=== PATIENT | female | born 1955 | race Caucasian/White ===

== ENCOUNTER 2016-08-09 17:14 | Emergency (ER) | payer OTHER ==
[2016-08-09] MEDS ORDERED: cefTRIAXone 1 GM VIAL IM STA (17:41)
[2016-08-09] MEDS ORDERED: LIDOCAINE 1% 2 ML VIAL ONE (17:44)
[2016-08-09] MEDS ORDERED: cefTRIAXone 1 GM VIAL ONE (17:44)
--- NOTE | 2016-08-09 17:46 | ED Physician Documentation ---
PD HPI ANIMAL BITE - Stated complaint Stated Complaint: CAT BITE - Chief complaint Chief Complaint: Ext Problem - History obtained from History obtained from: Patient - History of Present Illness Location of injury(ies): LUE Details of the event: Cat, Pet animal, Immunized, Animal can be observed Timing - onset: Enter time (0800), Today Timing - duration: Hours Timing - details: Abrupt onset, Still present Improved by: Nothing Associated symptoms: Swelling, Discolored Similar symptoms before: Has not had sx before Recently seen: Not recently seen - Additional information Additional information: 61 y/o female was bit by a cat this morning at her sons house in [place]. . As she drove back here she began to have pain in her wrist that she thought was from driving and when she arrived her she noted there was redness and swelling and a lymphangitic streak from the bite. She has not had fever or faintness. Review of Systems Constitutional: denies: Fever Ears: denies: Ear pain Nose: denies: Congestion Throat: denies: Sore throat Respiratory: denies: Cough GI: denies: Vomiting : denies: Dysuria, Frequency Skin: denies: Rash Musculoskeletal: reports: Extremity pain. denies: Neck pain, Back pain PD PAST MEDICAL HISTORY - Past Medical History Past Medical History: Yes Cardiovascular: Hypertension, High cholesterol - Past Surgical History Past Surgical History: No - Present Medications Home Medications: Ambulatory Orders Medication Instructions Recorded Confirmed Amox/Clav 875/125 [Augmentin] 1 each PO Q12H #20 tablet 08/09/16 Metoprolol Succinate [Toprol Xl] 25 mg PO BID 08/09/16 08/09/16 Simvastatin 10 mg PO DAILY 08/09/16 08/09/16 - Allergies Allergies/Adverse Reactions: Allergies Allergy/AdvReac Type Severity Reaction Status Date / Time Sulfa (Sulfonamide Allergy Unknown Verified 08/09/16 17:24 Antibiotics) varenicline tartrate * Allergy Hallucinati Verified 08/09/16 17:24 [From Chantix] ons - Social History Does the pt smoke?: Yes Smoking Status: Current every day smoker PD ED PE NORMAL - Vitals Vital signs reviewed: Yes (hypertensive and tachy ) - General General: Alert and oriented X 3, No acute distress, Well developed/nourished - HEENT HEENT: Atraumatic, PERRL - Respiratory Respiratory: No respiratory distress - Derm Derm: Normal color, Warm and dry, No rash - Extremities Extremities: No deformity, Other (There are 2 small puncture wounds over the dorsum of the left wrist and these areas are erythematous, swollen and there is the beginning of a lymphangitic streak that runs to about the mid forearm. ) - Neuro Neuro: No motor deficit, No sensory deficit - Psych Psych: Normal mood, Normal affect Results - Vitals Vitals: Vital Signs - 24 hr 08/09/16 17:21 Temperature 36.6 C Heart Rate 103 H Respiratory 18 Rate Blood Pressure 192/95 H O2 Saturation 97 Oxygen O2 Source Room air PD MEDICAL DECISION MAKING - ED course Complexity details: considered differential, d/w patient ED course: 61 y/o female with an infected cat bite to the left wrist. She is given rocephin IM and we will put her on some augmentin. We have given her instructions to return to the ED if she fails this treatment. Departure - Departure Disposition: 01 Home, Self Care Clinical Impression: Pasteurella cellulitis due to cat bite Condition: Stable Instructions: ED Bite Cat, ED Infec Skin Cellulitis Follow-Up: Danii Lyon PA-C [Primary Care Provider] - Prescriptions: Amox/Clav 875/125 [Augmentin] 1 each PO Q12H #20 tablet Forms: Activity restrictions
[2016-08-09 18:07] VITALS: BP 134/76
== END 2016-08-09 18:06 | disposition home or self-care (01) ==
LOC: ED 17:14
DX: L03.114 Cellulitis of left upper limb (principal); B96.89 Other specified bacterial agents as the cause of diseases classified elsewhere; S61.552A Open bite of left wrist, initial encounter; I10 Essential (primary) hypertension; F17.200 Nicotine dependence, unspecified, uncomplicated; W55.01XA Bitten by cat, initial encounter; Y92.009 Unspecified place in unspecified non-institutional (private) residence as the place of occurrence of the external cause
CPT/HCPCS: 96372; 99283

== ENCOUNTER 2017-05-26 09:04 | Emergency (ER) | payer OTHER ==
[2017-05-26 09:13] VITALS: BP 197/99
[2017-05-26] MEDS ORDERED: TETANUS/DIPHTHERIA/PERTUSSIS 0.5 ML SYRINGE IM ONE (10:05)
--- NOTE | 2017-05-26 10:09 | ED Physician Documentation ---
PD HPI ANIMAL BITE - Stated complaint Stated Complaint: DOG BITE - Chief complaint Chief Complaint: Wound - History obtained from History obtained from: Patient - History of Present Illness Location of injury(ies): Right hand Details of the event: Dog, Bite, Pet animal, Well appearing, Immunized, Animal can be observed, Animal control notified Timing - onset: Today Timing - duration: Minutes Improved by: Rest, Immobilization Worsened by: Moving, Palpating Associated symptoms: No: Weakness, Numbness, Tingling Contributing factors: No: Immunocompromised Similar symptoms before: Diagnosis (cat bite) Recently seen: Not recently seen - Additional information Additional information: 61-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 The patient states that she has seen this same dog weekly, frequently, and has had a good report with this dog previously. Today she went to pet the dog on the way onto the boat and the dog bit her hand. The dog would not let go over hand and she eventually was able to get the dog off of her and has puncture wounds to the dorsum and palmar surface of the hand. She does not have numbness or tingling she does have a fair amount of pain associated with this. The dog is up-to-date on his immunizations and animal control has been notified. Review of Systems Constitutional: denies: Fever Eyes: denies: Decreased vision Ears: denies: Ear pain Nose: denies: Congestion Throat: denies: Sore throat Cardiac: denies: Chest pain / pressure Respiratory: denies: Cough GI: denies: Nausea, Vomiting Skin: reports: Bite / sting. denies: Rash Musculoskeletal: reports: Extremity pain. denies: Neck pain, Back pain PD PAST MEDICAL HISTORY - Past Medical History Past Medical History: Yes Cardiovascular: Hypertension, High cholesterol - Past Surgical History Past Surgical History: No - Present Medications Home Medications: Ambulatory Orders Medication Instructions Recorded Confirmed Metoprolol Succinate [Toprol Xl] 25 mg PO BID 08/09/16 05/26/17 Simvastatin 10 mg PO DAILY 08/09/16 05/26/17 Amox/Clav 875/125 [Augmentin] 1 each PO Q12H #10 tablet 05/26/17 - Allergies Allergies/Adverse Reactions: Allergies Allergy/AdvReac Type Severity Reaction Status Date / Time Sulfa (Sulfonamide Allergy Unknown Verified 08/09/16 17:24 Antibiotics) varenicline tartrate * Allergy Hallucinati Verified 08/09/16 17:24 [From Chantix] ons - Social History Does the pt smoke?: Yes Smoking Status: Current every day smoker PD ED PE NORMAL - Vitals Vital signs reviewed: Yes (tachy and hypertensive) - General General: Alert and oriented X 3, No acute distress, Well developed/nourished - HEENT HEENT: Atraumatic, PERRL - Neck Neck: Supple, no meningeal sign - Respiratory Respiratory: No respiratory distress - Derm Derm: Normal color, Warm and dry, No rash - Extremities Extremities: No deformity, No edema, Other (There are puncture wounds over the dorsum of the right hand over the web space of the 1st-2nd and over the bearden surface of the space between #2 AND #3. Distal n/v is intact. ) - Neuro Neuro: No motor deficit, No sensory deficit Eye Opening: Spontaneous Motor: Obeys Commands Verbal: Oriented GCS Score: 15 - Psych Psych: Normal mood, Normal affect Results - Vitals Vitals: Vital Signs - 24 hr 05/26/17 09:09 Temperature 36.7 C Heart Rate 116 H Respiratory 20 Rate Blood Pressure 197/99 H O2 Saturation 96 Oxygen O2 Source Room air PD MEDICAL DECISION MAKING - ED course Complexity details: reviewed old records, considered differential, d/w patient ED course: 61-year-old female with a dog bite to the right hand in a non-provoked attack is treated conservatively with cleansing of the wounds and she is administered a tetanus booster. We will place her on antibiotic prophylaxis. Departure - Departure Disposition: 01 Home, Self Care Clinical Impression: Animal bite with open wound Condition: Stable Instructions: ED Bite Animal General Follow-Up: Danii Lyon PA-C [Primary Care Provider] - Prescriptions: Amox/Clav 875/125 [Augmentin] 1 each PO Q12H #10 tablet Forms: Activity restrictions Discharge Date/Time: 05/26/17 10:36
== END 2017-05-26 10:36 | disposition home or self-care (01) ==
LOC: ED 09:04
DX: S61.451A Open bite of right hand, initial encounter (principal); W54.0XXA Bitten by dog, initial encounter; Y93.89 Activity, other specified; Y92.29 Other specified public building as the place of occurrence of the external cause; Y99.0 Civilian activity done for income or pay; Z23 Encounter for immunization; I10 Essential (primary) hypertension; F17.200 Nicotine dependence, unspecified, uncomplicated
CPT/HCPCS: 1040M; 90471; 99283

== ENCOUNTER 2018-03-10 10:53 | Outpatient (CLI) | payer OTHER ==
[2018-03-10 11:13] LABS: BASOPHILS # (AUTO) 0.1 10^3/uL (0.0-0.1); BASOPHILS % (AUTO) 0.9 %; EOSINOPHILS # (AUTO) 0.2 10^3/uL (0.0-0.7); EOSINOPHILS % (AUTO) 2.4 %; LYMPHOCYTES # (AUTO) 2.2 10^3/uL (1.5-3.5); LYMPHOCYTES % (AUTO) 24.6 %; MEAN CORPUSCULAR HEMOGLOBIN 30.8 pg (27.0-31.0); MEAN CORPUSCULAR HGB CONC 33.6 g/dL (32.0-36.0); MEAN CORPUSCULAR VOLUME 91.5 fL (81.0-99.0); MEAN PLATELET VOLUME 8.2 fL (7.9-10.8); MONOCYTES # (AUTO) 0.6 10^3/uL (0.0-1.0); MONOCYTES % (AUTO) 6.3 %; NEUTROPHILS # (AUTO) 5.9 10^3/uL (1.5-6.6); NEUTROPHILS % (AUTO) 65.8 %; PLT - PLATELET COUNT 352 10^3/uL (130-450); RED BLOOD COUNT 4.54 10^6/uL (4.20-5.40); RED CELL DISTRIBUTION WIDTH 14.6 % (12.0-15.0); WHITE BLOOD COUNT 8.9 x10^3/uL (4.8-10.8)
[2018-03-10 16:11] LABS: ALBUMIN/GLOBULIN RATIO 1.1 (1.0-2.2); ALKALINE PHOSPHATASE 89 IU/L (42-121); ALT ALANINE AMINOTRANSFERASE 19 IU/L (10-60); AST ASPARTATE AMINOTRANSFERASE 21 IU/L (10-42); BILIRUBIN,TOTAL 0.5 mg/dL (0.2-1.0); BUN - BLOOD UREA NITROGEN 15 mg/dL (6-20); CREATININE 0.8 mg/dL (0.4-1.0); GFR - MDRD 73 (>89); TOTAL PROTEIN 7.5 g/dL (6.7-8.2); URIC ACID 7.8 mg/dL (2.6-7.2)
[2018-03-10 16:12] LABS: CHOLESTEROL 238 mg/dL; HDL CHOLESTEROL 40 mg/dL; LDL CHOLESTEROL,CALCULATED 154 mg/dL; LDL/HDL RATIO 3.9 (<4.4); VLDL CHOLESTEROL 44 mg/dL
[2018-03-10 16:14] LABS: CALCIUM 9.2 mg/dL (8.5-10.3); CARBON DIOXIDE - CO2 25 mmol/L (21-32); CHLORIDE 102 mmol/L (101-111); GLUCOSE 106 mg/dL (70-100); SODIUM 135 mmol/L (135-145)
--- NOTE | 2018-03-11 09:22 | XRAY Report ---
Reason: E785 Z0000 M1000, COPD Procedure Date: 03/10/2018 Accession Number: [id number] / [id number] Procedure: XR - Chest 2 View X-Ray CPT Code: 84815 FULL RESULT: EXAM: CHEST RADIOGRAPHY EXAM DATE: 03/10/2018 11:56 AM. CLINICAL HISTORY: E785 Z0000 M1000, COPD. COMPARISON: None. TECHNIQUE: 2 views. FINDINGS: Lungs/Pleura: No focal opacities evident. No pleural effusion. No pneumothorax. There is mild flattening of the diaphragms. Mediastinum: Heart and mediastinal contours are unremarkable. IMPRESSION: COPD. No acute thoracic findings. RADIA
== END 2018-03-10 10:54 | disposition home or self-care (01) ==
LOC: LAB 10:53 → DI 10:54
PROVIDERS: ATTEND Physician Assistant Medical
DX: J44.9 Chronic obstructive pulmonary disease, unspecified (principal); E78.5 Hyperlipidemia, unspecified; Z00.00 Encounter for general adult medical examination without abnormal findings; M10.00 Idiopathic gout, unspecified site
CPT/HCPCS: 36415; 71046; 80053; 80061; 83721; 84443; 84550; 85025

== ENCOUNTER 2018-08-15 08:00 | Outpatient (CLI) | payer OTHER ==
[2018-08-15 18:48] LABS: BASOPHILS # (AUTO) 0.1 10^3/uL (0.0-0.1); BASOPHILS % (AUTO) 0.7 %; EOSINOPHILS # (AUTO) 0.2 10^3/uL (0.0-0.7); EOSINOPHILS % (AUTO) 1.4 %; HGB - HEMOGLOBIN 14.1 g/dL (12.0-16.0); LYMPHOCYTES # (AUTO) 3.2 10^3/uL (1.5-3.5); LYMPHOCYTES % (AUTO) 28.1 %; MEAN CORPUSCULAR HEMOGLOBIN 30.9 pg (27.0-31.0); MEAN CORPUSCULAR HGB CONC 32.1 g/dL (32.0-36.0); MEAN CORPUSCULAR VOLUME 96.1 fL (81.0-99.0); MEAN PLATELET VOLUME 11.2 fL (7.9-10.8); MONOCYTES # (AUTO) 0.9 10^3/uL (0.0-1.0); MONOCYTES % (AUTO) 7.4 %; NEUTROPHILS % (AUTO) 60.8 %; PLT - PLATELET COUNT 354 10^3/uL (130-450); RED BLOOD COUNT 4.57 10^6/uL (4.20-5.40); WHITE BLOOD COUNT 11.4 x10^3/uL (4.8-10.8)
[2018-08-15 19:01] LABS: ALBUMIN 4.2 g/dL (3.2-5.5); ALBUMIN/GLOBULIN RATIO 1.2 (1.0-2.2); BILIRUBIN,TOTAL 0.5 mg/dL (0.2-1.0); CALCIUM 9.9 mg/dL (8.5-10.3); CREATININE 1.1 mg/dL (0.4-1.0); TOTAL PROTEIN 7.7 g/dL (6.7-8.2)
== END 2018-08-15 23:59 | disposition home or self-care (01) ==
LOC: LAB.WCP 08:00
PROVIDERS: ATTEND Physician Assistant Medical
DX: R55 Syncope and collapse (principal); R06.09 Other forms of dyspnea
CPT/HCPCS: 36415; 80053; 83880; 84443; 85025

== ENCOUNTER 2018-08-26 11:36 | Outpatient (CLI) | payer OTHER | END 2018-08-26 11:37 | disposition home or self-care (01) | LOC: DI 11:36 | PROVIDERS: ATTEND Physician Assistant Medical | DX: R55 Syncope and collapse (principal); R60.9 Edema, unspecified | CPT/HCPCS: 93306 ==

== ENCOUNTER 2018-09-19 | Outpatient (CLI) | payer OTHER | END 2018-09-19 23:59 | disposition home or self-care (01) | DX: R60.9 Edema, unspecified (principal) ==

== ENCOUNTER 2018-11-04 13:57 | Outpatient (CLI) | payer OTHER ==
[2018-11-04 19:48] LABS: ALBUMIN 3.8 g/dL (3.2-5.5); ALBUMIN/GLOBULIN RATIO 1.1 (1.0-2.2); ALKALINE PHOSPHATASE 74 IU/L (42-121); ALT ALANINE AMINOTRANSFERASE 44 IU/L (10-60); AST ASPARTATE AMINOTRANSFERASE 34 IU/L (10-42); BILIRUBIN,TOTAL 0.5 mg/dL (0.2-1.0); BUN - BLOOD UREA NITROGEN 15 mg/dL (6-20); CALCIUM 9.7 mg/dL (8.5-10.3); CARBON DIOXIDE - CO2 27 mmol/L (21-32); CHLORIDE 103 mmol/L (101-111); CHOL/HDL RATIO 6.3 (<4.4); CHOLESTEROL 222 mg/dL; CREATININE 0.8 mg/dL (0.4-1.0); GFR - MDRD 72 (>89); GLUCOSE 103 mg/dL (70-100); HDL CHOLESTEROL 35 mg/dL; MAGNESIUM 1.7 mg/dL (1.7-2.8); SODIUM 140 mmol/L (135-145); TOTAL PROTEIN 7.2 g/dL (6.7-8.2)
[2018-11-04 20:11] LABS: LDL CHOLESTEROL,DIRECT 124 mg/dL; LDLD/HDL RATIO 3.5 (<4.4)
== END 2018-11-04 23:59 | disposition home or self-care (01) ==
LOC: LAB.WCP 13:57
PROVIDERS: ATTEND Internal Medicine Cardiovascular Disease
DX: I10 Essential (primary) hypertension (principal)
CPT/HCPCS: 36415; 80053; 80061; 82088; 83721; 83735; 83835; 84443

== ENCOUNTER 2018-11-17 07:00 | Outpatient (CLI) | payer OTHER | END 2018-11-17 23:59 | disposition home or self-care (01) | LOC: LAB.R 07:00 | PROVIDERS: ATTEND Internal Medicine Cardiovascular Disease | DX: I10 Essential (primary) hypertension (principal) | CPT/HCPCS: 81599; 82384; 83835 ==

== ENCOUNTER 2019-02-23 16:30 | Outpatient (CLI) | payer OTHER | END 2019-02-23 23:59 | disposition home or self-care (01) | LOC: LAB.R 16:30 | PROVIDERS: ATTEND Physician Assistant Medical | DX: J06.9 Acute upper respiratory infection, unspecified (principal) | CPT/HCPCS: 87275; 87276 ==

== ENCOUNTER 2019-02-26 08:26 | Emergency (ER) | payer OTHER ==
[2019-02-26 08:37] VITALS: BP 149/86
[2019-02-26] MEDS ORDERED: DEXAMETHASONE 10 MG/ML VIAL PO STA (08:56)
[2019-02-26] MEDS ORDERED: CHERRY SYRUP 10 ML UDC PO ONE (08:56)
--- NOTE | 2019-02-26 08:58 | ED Physician Documentation ---
PD HPI SKIN - Stated complaint Stated Complaint: RASH - Chief complaint Chief Complaint: Wound - History obtained from History obtained from: Patient - History of Present Illness Timing - onset: Last night Timing - duration: Hours Timing - details: Gradual onset, Still present Location: [place] Quality / character: Itchy, Burning, Discolored Contributing factors: Exposed to medication Similar symptoms before: Diagnosis (allergic reaction) Recently seen: Clinic - Additional information Additional information: 63-year-old female is recently been diagnosed with strep and placed on az ithromycin. She has taken the initial dose and a second dose yesterday and yesterday evening she has broken out into a rash that is itchy and erythematous. She has been on azithromycin previously a number of times without problem. She indicates that previously she has been placed on a course of steroid for muscle pain and developed thrush. She states the thrush was a bad experience. She has also recently started metformin for diabetes. She started this on 02/21/2019. This is a new medication. Her symptoms of strep are persistent she does have sore throat. Review of Systems Constitutional: denies: Fever Eyes: denies: Decreased vision Ears: denies: Ear pain Nose: reports: Congestion Throat: reports: Sore throat Cardiac: denies: Chest pain / pressure, Palpitations Respiratory: reports: Cough. denies: Dyspnea GI: denies: Abdominal Pain, Nausea, Vomiting : denies: Dysuria, Frequency Skin: reports: Rash Musculoskeletal: denies: Neck pain, Back pain, Extremity pain PD PAST MEDICAL HISTORY - Past Medical History Cardiovascular: Hypertension, High cholesterol - Past Surgical History Past Surgical History: No - Present Medications Home Medications: Ambulatory Orders Medication Instructions Recorded Confirmed Metoprolol Succinate [Toprol Xl] 100 mg PO BID 08/09/16 05/26/17 Allopurinol [Zyloprim] 300 mg PO 02/26/19 Amoxicillin 875 mg PO BID #20 tablet 02/26/19 Aspirin 81 mg PO 02/26/19 Atorvastatin [Lipitor] 0 mg 02/26/19 Codeine Phosphate/Guaifenesin 473 ml PO 02/26/19 [Virtussin AC W-Alc 10-100 mg/5] Colchicine 0.6 mg PO 02/26/19 Flaxseed Oil 1,000 mg PO 02/26/19 Losartan/Hydrochlorothiazide 1 each PO 01/12/20 [Losartan-Hctz 50-12.5 mg Tab] amLODIPine [Norvasc] 2.5 mg ORAL DAILY 02/26/19 02/26/19 dexAMETHasone [Decadron] 4 mg PO DAILY #5 tablet 02/26/19 - Allergies Allergies/Adverse Reactions: Allergies Allergy/AdvReac Type Severity Reaction Status Date / Time prednisone Allergy Unknown Verified 02/26/19 08:38 Sulfa (Sulfonamide Allergy Unknown Verified 08/09/16 17:24 Antibiotics) varenicline tartrate * Allergy Hallucinati Verified 08/09/16 17:24 [From Chantix] ons - Social History Does the pt smoke?: Yes Smoking Status: Current every day smoker PD ED PE NORMAL - Vitals Vital signs reviewed: Yes (Hypertensive) - General General: Alert and oriented X 3, No acute distress, Well developed/nourished - HEENT HEENT: Atraumatic, PERRL, EOMI, Other (There is erythema and rounding of landmarks to both TMs. The pharynx has some mild swelling to the uvula and erythema.) - Neck Neck: Supple, no meningeal sign, No bony TTP - Cardiac Cardiac: RRR, No murmur - Respiratory Respiratory: No respiratory distress, Other (Diminished breath sounds) - Back Back: No CVA TTP, No spinal TTP - Derm Derm: Normal color, Warm and dry, Other (There is fine erythema over the entire back and chest consistent with a drug eruption.) - Extremities Extremities: No deformity, No edema - Neuro Neuro: Alert and oriented X 3, millwright instructor 2-12 intact, No motor deficit, No sensory deficit, Normal speech Eye Opening: Spontaneous Motor: Obeys Commands Verbal: Oriented GCS Score: 15 - Psych Psych: Normal mood, Normal affect Results - Vitals Vitals: Vital Signs - 24 hr 02/26/19 08:31 Temperature 36.4 C L Heart Rate 95 Respiratory 18 Rate Blood Pressure 149/86 H O2 Saturation 93 Oxygen O2 Source Room air PD MEDICAL DECISION MAKING - ED course Complexity details: reviewed old records, considered differential, d/w patient ED course: 63-year-old female recently placed on azithromycin for strep appears to have developed a drug eruption. She does have exposure to Metformin as well although the length of time of her exposure to the metformin is several days short of being able to develop a reaction from first exposure. Her exposure to the azithromycin and her prior use of it fit more closely for this reaction. She is taken off of the a azithromycin we will place her on to some amoxicillin and we have given her a dose of dexamethasone and we will place her on some Benadryl every 6 hours. Departure - Departure Disposition: 01 Home, Self Care Clinical Impression: Allergic reaction caused by a drug Qualifiers: Encounter type: initial encounter Qualified Code(s): T78.40XA - Allergy, unspecified, initial encounter Condition: Stable Instructions: ED Drug React Allergic Follow-Up: Danii Lyon PA-C [Primary Care Provider] - Prescriptions: Amoxicillin 875 mg PO BID #20 tablet dexAMETHasone [Decadron] 4 mg PO DAILY #5 tablet Comments: Today it looks like you have had a reaction to the azithromycin. Discontinue the use medication and start the amoxicillin for treatment of strep. Take Benadryl 25 to 50 mg every 6 hours for the next 2 days. In addition we have prescribed dexamethasone to take 4 mg daily for the next 5 days. If you develop signs and symptoms of thrush call your doctor for treatment.
== END 2019-02-26 09:32 | disposition home or self-care (01) ==
LOC: ED 08:26
DX: L27.0 Generalized skin eruption due to drugs and medicaments taken internally (principal); T36.3X5A Adverse effect of macrolides, initial encounter; A49.1 Streptococcal infection, unspecified site; I10 Essential (primary) hypertension; F17.200 Nicotine dependence, unspecified, uncomplicated
CPT/HCPCS: 99282; 99284; A9270

== ENCOUNTER 2019-03-02 13:11 | Outpatient (CLI) | payer OTHER ==
[2019-03-02 13:31] LABS: BASOPHILS % (AUTO) 0.4 %; EOSINOPHILS % (AUTO) 0.2 %; HGB - HEMOGLOBIN 14.5 g/dL (12.0-16.0); LYMPHOCYTES % (AUTO) 15.3 %; MEAN CORPUSCULAR HEMOGLOBIN 32.2 pg (27.0-31.0); MEAN CORPUSCULAR VOLUME 97.6 fL (81.0-99.0); MEAN PLATELET VOLUME 10.3 fL (7.9-10.8); MONOCYTES % (AUTO) 3.9 %; NEUTROPHILS % (AUTO) 74.9 %; PLT - PLATELET COUNT 451 10^3/uL (130-450); WHITE BLOOD COUNT 19.4 x10^3/uL (4.8-10.8)
[2019-03-02 13:51] LABS: BUN - BLOOD UREA NITROGEN 42 mg/dL (6-20); CALCIUM 9.5 mg/dL (8.5-10.3); CARBON DIOXIDE - CO2 24 mmol/L (21-32); CHLORIDE 103 mmol/L (101-111); CHOL/HDL RATIO 3.7 (<4.4); CHOLESTEROL 159 mg/dL; CREATININE 1.1 mg/dL (0.4-1.0); GFR - MDRD 50 (>89); GLUCOSE 132 mg/dL (70-100); HDL CHOLESTEROL 43 mg/dL; LDL CHOLESTEROL,CALCULATED 72 mg/dL; LDL/HDL RATIO 1.7 (<4.4); SODIUM 139 mmol/L (135-145); VLDL CHOLESTEROL 44 mg/dL
[2019-03-02 14:17] LABS: ABNORMAL LYMPHS % (MANUAL) 0 %
[2019-03-02 14:19] LABS: BAND NEUTROPHILS % (MANUAL) 2 %; LYMPHOCYTES # (MANUAL) 2.5 10^3/uL (1.5-3.5); LYMPHOCYTES % (MANUAL) 7 %; MONOCYTES # (MANUAL) 0.2 10^3/uL (0.0-1.0); MYELOCYTES % (MANUAL) 1 %
[2019-03-02 14:20] LABS: DIFFERENTIAL COMMENT MANUAL DIFFERENTIAL; PLATELET MORPHOLOGY RARE GIANT PLATELETS (NORMAL)
== END 2019-03-02 13:12 | disposition home or self-care (01) ==
LOC: LAB 13:11
PROVIDERS: ATTEND Internal Medicine Interventional Cardiology
DX: I73.9 Peripheral vascular disease, unspecified (principal); I10 Essential (primary) hypertension; E78.2 Mixed hyperlipidemia; R09.89 Other specified symptoms and signs involving the circulatory and respiratory systems
CPT/HCPCS: 36415; 80048; 80061; 83721; 85025

== ENCOUNTER 2019-03-14 10:00 | Outpatient (CLI) | payer OTHER ==
[2019-03-14 19:02] LABS: BILIRUBIN,URINE NEGATIVE (NEGATIVE); GLUCOSE, URINE (UA) NEGATIVE (NEGATIVE); KETONES,URINE (UA) NEGATIVE (NEGATIVE); LEUKOCYTE ESTERASE, URINE NEGATIVE (NEGATIVE); NITRITE,URINE NEGATIVE (NEGATIVE); OCCULT BLOOD,URINE SMALL (NEGATIVE); PROTEIN,URINE TRACE mg/dL (NEGATIVE); UROBILINOGEN,URINE 0.2 (NORMAL) E.U./dL (NORMAL)
[2019-03-14 19:04] LABS: CLARITY,URINE CLEAR (CLEAR)
[2019-03-14 19:18] LABS: BACTERIA,URINE None Seen /HPF (None Seen); MUCUS,URINE Few Strands; RBC,URINE 0-5 /HPF (0-5); SQUAMOUS EPITHELIAL CELL,UR FEW Squamous (<= Few)
== END 2019-03-14 23:59 | disposition home or self-care (01) ==
LOC: LAB.WCP 10:00
PROVIDERS: ATTEND Physician Assistant Medical
DX: R31.9 Hematuria, unspecified (principal)
CPT/HCPCS: 81001; 81003; 87086

== ENCOUNTER 2019-03-14 14:15 | Outpatient (CLI) | payer OTHER ==
[2019-03-14] MEDS ORDERED: IOVERSOL 320 100 ML VIAL IVP ONE ×2 (14:20→15:18)
--- NOTE | 2019-03-14 15:24 | CT Report ---
Reason: LUEKOCYSTOSIS- Procedure Date: 03/14/2019 Accession Number: [id number] / [id number] Procedure: CT - CHEST W CPT Code: Final Report FULL RESULT: EXAM: CT CHEST EXAM DATE: 03/14/2019 02:49 PM. CLINICAL HISTORY: LUEKOCYSTOSIS-. COMPARISONS: CHEST 2 VIEW 03/10/2018 11:45 AM. TECHNIQUE: Routine helical CT imaging was performed through the chest. IV contrast: 80 mL Optiray 320. Reconstructions: Coronal and sagittal. In accordance with CT protocol optimization, one or more of the following dose reduction techniques were utilized for this exam: automated exposure control, adjustment of mA and/or KV based on patient size, or use of iterative reconstructive technique. FINDINGS: Lungs/Pleura: Trachea and central bronchi are patent. Mild dependent mucus within the trachea and mainstem bronchi. Mild bilateral bronchial wall thickening centrally. Mild emphysematous changes bilaterally with apical predominance. Fibronodular scarring at both apices. Other minimal atelectasis/scarring bilaterally. No focal lung consolidation. No pleural effusion. No pneumothorax. Left upper lobe perifissural nodule measuring approximate 2 mm (image 157, series 4). Mediastinum: Cardiac size appears normal. Trace anterior pericardial fluid. Coronary artery calcifications. No central pulmonary embolism. No aortic aneurysm. Atherosclerotic aortic plaque and calcification appears moderate and appears to more prominent within the visualized abdominal aorta. Plaque also noted mildly within the aortic arch vessels. No bulky mediastinal adenopathy. Visualized thyroid appears unremarkable. Bones: Unremarkable. Visualized Abdomen: Diffusely hypoattenuating appearance of the visualized portion of the liver, suggesting steatosis. Other: None. IMPRESSION: 1. No focal lung consolidation or pleural effusions. 2. Mild bilateral emphysematous changes with apical predominance. Fibronodular scarring at both apices. 3. Mild bronchial wall thickening centrally, suggesting airways disease. Small amount of dependent mucus also noted within the trachea and mainstem bronchi. 4. Moderate atherosclerotic plaque and calcifications. Coronary artery calcifications also noted. 5. Minimal anterior pericardial fluid. 6. Partially visualized hepatic steatosis. 7. Small, approximate 2 mm, left upper lobe pulmonary nodule. Recommend follow-up of the described nodule(s) according to the following guidelines: Fleischner Society Recommendations 2017 MacMahon et al. Radiology 2017 Solid Nodules-Low Risk Patients: <6 mm (single or multiple) - No routine follow-up* 6-8 mm (single) -CT at 6-12 months, then consider CT at 18-24 months 6-8mm (multiple) -CT at 3-6 months, then consider at CT 18-24 months >8 mm (single) -Consider CT, PET/CT, or tissue sampling at 3 months >8 mm (multiple) -CT at 3-6 months, then consider CT at 18-24 months Solid Nodules-High Risk Patients: <6 mm (single or multiple) -Optional CT at 12 months* 6-8 mm (single) -CT at 6-12 months, then CT at 18-24 months 6-8mm (multiple) -CT at 3-6 months, then CT at 18-24 months >8 mm (single) -Consider CT, PET/CT, or tissue sampling at 3 months >8 mm (multiple) -CT at 3-6 months, then at 18-24 months *Nodules < 6mm do not require routine follow-up, but suspicious nodule morphology, upper lobe location, or both may warrant 12 month follow-up Consider follow-up at 2 and 4 years for certain suspicious nodules <6mm. If solid component develops or growth, consider resection. Call report initiated at approximately 3:20 PM on 03/14/2019. RADIA
== END 2019-03-14 14:16 | disposition home or self-care (01) ==
LOC: DI 14:15
PROVIDERS: ATTEND Physician Assistant Medical
DX: J43.9 Emphysema, unspecified (principal); I25.10 Atherosclerotic heart disease of native coronary artery without angina pectoris; I70.0 Atherosclerosis of aorta; K76.0 Fatty (change of) liver, not elsewhere classified; R91.1 Solitary pulmonary nodule
CPT/HCPCS: 71260; Q9967

== ENCOUNTER 2019-04-05 09:45 | Outpatient (CLI) | payer OTHER ==
--- NOTE | 2019-04-07 23:00 | Ultrasound Report ---
Reason: PAD Procedure Date: 04/05/2019 Accession Number: [id number] / [id number] Procedure: US - Duplex Lwr Ext Arterial RT CPT Code: Final Report FULL RESULT: EXAM: RIGHT LOWER EXTREMITY ARTERIAL DOPPLER ULTRASOUND EXAM DATE: 04/05/2019 10:23 AM. CLINICAL HISTORY: Peripheral arterial disease status post right iliac stent 03/24/2019. COMPARISON: None. TECHNIQUE: Real-time sonographic vascular imaging was performed by the arnp, utilizing color-flow, Doppler flow, and spectral analysis. Multiple business office representative static images were saved for review. FINDINGS: Right Lower Extremity: PSYCHOTHERAPIST COUNSELOR: PSV 145 cm/sec, triphasic. PSFA: PSV 122 cm/sec, triphasic. MSFA: PSV 100 cm/sec, triphasic. DSFA: PSV 66 cm/sec, triphasic. PFA: PSV 83 cm/sec, triphasic. POP: PSV 54 cm/sec, triphasic. LANRE: PSV 66 cm/sec, biphasic. STEWARD/STEWARDESS THIRD: PSV 75 cm/sec, triphasic. ADIEL: PSV 47 cm/sec, biphasic. DPA: PSV 78 cm/sec, biphasic. IMPRESSION: No evidence for hemodynamically significant stenosis or occlusion. See above. RADIA
== END 2019-04-05 09:46 | disposition home or self-care (01) ==
LOC: DI 09:45
PROVIDERS: ATTEND Internal Medicine Interventional Cardiology
DX: I73.9 Peripheral vascular disease, unspecified (principal)

== ENCOUNTER 2020-05-07 14:13 | Outpatient (CLI) | payer OTHER ==
--- NOTE | 2020-05-07 16:29 | Ultrasound Report ---
PROCEDURE: Carotid Doppler Complete INDICATIONS: LT CAROTID BRUIT TECHNIQUE: Color and pulse Doppler interrogation was performed of both carotid systems, with image documentation and velocity measurements. COMPARISON: None. FINDINGS: Right side: Brachial blood pressure: 172/78 mm Hg. Common carotid artery peak systolic velocity: 155 cm/sec. Internal carotid artery peak systolic velocity: 112 cm/sec. Internal carotid artery end diastolic velocity: 34 cm/sec. External carotid artery peak systolic velocity: 136 cm/sec. ICA/CCA peak systolic ratio: 0.7 . Fisher scale imaging description: Moderate plaque at the bifurcation Percent internal carotid artery stenosis: Less than 50% . Vertebral artery: Flow direction is antegrade. Left side: Brachial blood pressure: 157/83 mm Hg. Common carotid artery peak systolic velocity: 119 cm/sec. Internal carotid artery peak systolic velocity: 255 cm/sec. Internal carotid artery end diastolic velocity: 60 cm/sec. External carotid artery peak systolic velocity: 167 cm/sec. ICA/CCA peak systolic ratio: 2.1 . Fisher scale imaging description: Moderate plaque at the bifurcation Percent internal carotid artery stenosis: 50-69% . Vertebral artery: Flow direction is antegrade. IMPRESSION: 50-69% stenosis of the left internal carotid artery. Less than 50% stenosis of the right internal carotid artery. The estimate of stenosis included in the report of the imaging study was calculated using the NASCET method Reviewed by: Tanna Ruiz MD on 05/07/2020 4:28 PM PDT Approved by: Tanna Ruiz MD on 05/07/2020 4:28 PM PDT Station ID: [id number]
== END 2020-05-07 14:14 | disposition home or self-care (01) ==
LOC: DI 14:13
PROVIDERS: ATTEND Internal Medicine Interventional Cardiology
DX: R09.89 Other specified symptoms and signs involving the circulatory and respiratory systems (principal); I65.23 Occlusion and stenosis of bilateral carotid arteries
CPT/HCPCS: 93880

== ENCOUNTER 2020-05-08 07:00 | Outpatient (CLI) | payer OTHER ==
[2020-05-08 12:05] LABS: BASOPHILS # (AUTO) 0.1 10^3/uL (0.0-0.1); BASOPHILS % (AUTO) 0.9 %; EOSINOPHILS # (AUTO) 0.2 10^3/uL (0.0-0.7); EOSINOPHILS % (AUTO) 2.7 %; HCT - HEMATOCRIT 43.1 % (37.0-47.0); HGB - HEMOGLOBIN 13.8 g/dL (12.0-16.0); LYMPHOCYTES # (AUTO) 2.1 10^3/uL (1.5-3.5); LYMPHOCYTES % (AUTO) 23.5 %; MEAN CORPUSCULAR HEMOGLOBIN 31.5 pg (27.0-31.0); MEAN CORPUSCULAR VOLUME 98.4 fL (81.0-99.0); MEAN PLATELET VOLUME 11.3 fL (7.9-10.8); MONOCYTES # (AUTO) 0.6 10^3/uL (0.0-1.0); MONOCYTES % (AUTO) 6.3 %; NEUTROPHILS # (AUTO) 5.9 10^3/uL (1.5-6.6); NEUTROPHILS % (AUTO) 65.2 %; PLT - PLATELET COUNT 327 10^3/uL (130-450); RED BLOOD COUNT 4.38 10^6/uL (4.20-5.40)
[2020-05-08 13:02] LABS: THYROID STIMULATING HORMONE 2.63 uIU/mL (0.34-5.60)
[2020-05-08 13:05] LABS: ALBUMIN 4.4 g/dL (3.2-5.5); ALBUMIN/GLOBULIN RATIO 1.5 (1.0-2.2); ALKALINE PHOSPHATASE 69 IU/L (42-121); ALT ALANINE AMINOTRANSFERASE 30 IU/L (10-60); AST ASPARTATE AMINOTRANSFERASE 22 IU/L (10-42); BILIRUBIN,TOTAL 0.5 mg/dL (0.2-1.0); BUN - BLOOD UREA NITROGEN 29 mg/dL (6-20); CARBON DIOXIDE - CO2 24 mmol/L (21-32); CHLORIDE 104 mmol/L (101-111); CHOL/HDL RATIO 7.6 (<4.4); CHOLESTEROL 204 mg/dL; CREATININE 1.2 mg/dL (0.4-1.0); GFR - MDRD 45 (>89); GLUCOSE 181 mg/dL (70-100); HDL CHOLESTEROL 27 mg/dL; POTASSIUM 4.1 mmol/L (3.5-5.0); SODIUM 138 mmol/L (135-145); TOTAL PROTEIN 7.4 g/dL (6.7-8.2); TRIGLYCERIDES 610 mg/dL
[2020-05-08 13:26] LABS: ESTIMATED AVERAGE GLUCOSE 169 mg/dL (70-100); HEMOGLOBIN A1c% 7.5 % (4.27-6.07)
[2020-05-08 13:35] LABS: CREATININE,URINE 106.3 mg/dL; MICROALBUMIN,URINE 3.4 mg/dL (0-300.0)
[2020-05-08 13:36] LABS: LDL CHOLESTEROL,DIRECT 80 mg/dL
== END 2020-05-08 23:59 | disposition home or self-care (01) ==
LOC: LAB.WCP 07:00
PROVIDERS: ATTEND Physician Assistant Medical
DX: E11.9 Type 2 diabetes mellitus without complications (principal); I73.9 Peripheral vascular disease, unspecified; J44.9 Chronic obstructive pulmonary disease, unspecified; D72.829 Elevated white blood cell count, unspecified; E78.2 Mixed hyperlipidemia
CPT/HCPCS: 36415; 80053; 80061; 82043; 82570; 83036; 83721; 84443; 85025

== ENCOUNTER 2020-06-18 09:47 | Outpatient (CLI) | payer OTHER ==
--- NOTE | 2020-06-19 12:16 | Mammography Report ---
BILATERAL DIGITAL SCREENING MAMMOGRAM 3D/2D: 06/18/2020 CLINICAL: Routine screening. Comparison is made to exam dated: 10/31/2014 mammogram - [facility]. There are sca ttered fibroglandular elements in both breasts. No significant masses, calcifications, or other findings are seen in either breast. There has been no significant interval change. IMPRESSION: NEGATIVE There is no mammographic evidence of malignancy. A 1 year screening mammogram is recommended. This exam was interpreted at Station ID: [id number]. NOTE: For mammograms, a report in lay terms will be sent to the patient. Approximately 15% of breast malignancies will not be visualized mammographically. In the management of a palpable breast mass, a negative mammogram must not discourage biopsy of a clinically suspicious lesion. Electronically Signed By: Hilario Galaviz M.D. ddp/penrad:06/18/2020 10:43:11 ACR BI-RADS Category 1: Negative 3341F PARENCHYMAL PATTERN: (A) - The breast(s) demonstrate(s) scattered fibroglandular densities. BI-RADS CATEGORY: (1) - 1 RECOMMENDATION: (ANNUAL) - Recommend routine annual screening mammography. [id number] 1 year screening LATERALITY: (B)
== END 2020-06-18 09:48 | disposition home or self-care (01) ==
LOC: DI 09:47
DX: Z12.31 Encounter for screening mammogram for malignant neoplasm of breast (principal)

== ENCOUNTER 2020-06-19 08:00 | Outpatient (CLI) | payer OTHER ==
[2020-06-19 19:11] LABS: BILIRUBIN,URINE NEGATIVE (NEGATIVE); GLUCOSE, URINE (UA) NEGATIVE (NEGATIVE); KETONES,URINE (UA) NEGATIVE (NEGATIVE); LEUKOCYTE ESTERASE, URINE NEGATIVE (NEGATIVE); NITRITE,URINE NEGATIVE (NEGATIVE); OCCULT BLOOD,URINE TRACE-INTA (NEGATIVE); PROTEIN,URINE 30 mg/dL (NEGATIVE); UROBILINOGEN,URINE 0.2 (NORMAL) E.U./dL (NORMAL)
[2020-06-19 19:13] LABS: CLARITY,URINE CLEAR (CLEAR)
[2020-06-19 19:28] LABS: BACTERIA,URINE Rare /HPF (None Seen); RBC,URINE 0-5 /HPF (0-5); SQUAMOUS EPITHELIAL CELL,UR FEW Squamous (<= Few); WBC,URINE 0-3 /HPF (0-5)
== END 2020-06-19 23:59 | disposition home or self-care (01) ==
LOC: LAB.WCP 08:00
PROVIDERS: ATTEND Physician Assistant Medical
DX: R31.9 Hematuria, unspecified (principal)
CPT/HCPCS: 81001; 87086

== ENCOUNTER 2020-07-18 15:53 | Outpatient (CLI) | payer OTHER ==
[2020-07-18 16:10] LABS: BASOPHILS # (AUTO) 0.1 10^3/uL (0.0-0.1); BASOPHILS % (AUTO) 0.4 %; EOSINOPHILS # (AUTO) 0.2 10^3/uL (0.0-0.7); EOSINOPHILS % (AUTO) 1.4 %; HCT - HEMATOCRIT 41.4 % (37.0-47.0); HGB - HEMOGLOBIN 13.8 g/dL (12.0-16.0); LYMPHOCYTES # (AUTO) 2.2 10^3/uL (1.5-3.5); LYMPHOCYTES % (AUTO) 18.8 %; MEAN CORPUSCULAR HGB CONC 33.3 g/dL (32.0-36.0); MEAN CORPUSCULAR VOLUME 96.1 fL (81.0-99.0); MEAN PLATELET VOLUME 10.7 fL (7.9-10.8); MONOCYTES # (AUTO) 0.7 10^3/uL (0.0-1.0); MONOCYTES % (AUTO) 5.8 %; NEUTROPHILS # (AUTO) 8.5 10^3/uL (1.5-6.6); NEUTROPHILS % (AUTO) 72.7 %; PLT - PLATELET COUNT 317 10^3/uL (130-450); RED BLOOD COUNT 4.31 10^6/uL (4.20-5.40); RED CELL DISTRIBUTION WIDTH 15.3 % (12.0-15.0); WHITE BLOOD COUNT 11.6 x10^3/uL (4.8-10.8)
[2020-07-18 16:19] LABS: CREATININE,URINE 258.5 mg/dL; PROTEIN/CREATININE RATIO,URINE 0.2 (<=0.2)
[2020-07-18 16:23] LABS: CALCIUM 9.5 mg/dL (8.5-10.3); CREATININE 1.4 mg/dL (0.4-1.0); POTASSIUM 3.4 mmol/L (3.5-5.0)
== END 2020-07-18 15:54 | disposition home or self-care (01) ==
LOC: LAB 15:53
PROVIDERS: ATTEND Internal Medicine Nephrology
DX: N05.9 Unspecified nephritic syndrome with unspecified morphologic changes (principal); D70.9 Neutropenia, unspecified; D63.1 Anemia in chronic kidney disease; R80.9 Proteinuria, unspecified
CPT/HCPCS: 36415; 80048; 80053; 82570; 84156; 85025

== ENCOUNTER 2020-07-22 15:04 | Outpatient (CLI) | payer OTHER ==
[2020-07-24 12:01] LABS: COMPLEMENT COMPONENT C3C 203 mg/dL (83-193); COMPLEMENT COMPONENT C4C 40 mg/dL (15-57)
[2020-07-24 12:02] LABS: ANA SCREEN NEGATIVE (NEGATIVE)
[2020-07-24 16:56] LABS: GLOM BASEMENT MEMBRANE AB IGG <1.0 AI (<1.0)
[2020-07-25 14:51] LABS: ANCA SCREEN NEGATIVE (NEGATIVE)
== END 2020-07-22 15:05 | disposition home or self-care (01) ==
LOC: LAB 15:04
PROVIDERS: ATTEND Internal Medicine Nephrology
DX: L93.2 Other local lupus erythematosus (principal); M31.30 Wegener's granulomatosis without renal involvement; N00.9 Acute nephritic syndrome with unspecified morphologic changes; I77.6 Arteritis, unspecified; I50.32 Chronic diastolic (congestive) heart failure; D47.2 Monoclonal gammopathy
CPT/HCPCS: 36415; 81599; 83520; 83880; 84155; 84165; 86021; 86038; 86160; 86334

== ENCOUNTER 2020-07-26 13:02 | Outpatient (CLI) | payer OTHER | END 2020-07-26 13:03 | disposition home or self-care (01) | LOC: LAB.R 13:02 | PROVIDERS: ATTEND Internal Medicine Nephrology | DX: D47.2 Monoclonal gammopathy (principal) | CPT/HCPCS: 81599; 82570; 84156; 84166 ==

== ENCOUNTER 2020-07-30 14:42 | Outpatient (CLI) | payer OTHER ==
--- NOTE | 2020-07-31 15:08 | Ultrasound Report ---
PROCEDURE: Retroperitoneal INDICATIONS: ACUTE KIDNEY INJURY TECHNIQUE: Real-time scanning was performed of the kidneys and bladder, with image documentation. Kidneys: Kidneys are normal in size. Right kidney measures 10.7 cm long; left kidney measures 10.6 cm long. Right renal cortical thickness is 1.5 cm; left renal cortical thickness is 1.6 cm. No christopher d masses, hydronephrosis, or nephrolithiasis. There is a simple right renal cyst measuring 1.8 cm. S imple left renal cyst measuring 1.4 cm. Minimal prominence of the right renal pelvis. Bladder: Pre-void bladder volume is 345 mL. Post-void residual is 2 mL. Pre-void images demonstrat e no intraluminal masses or stones. On pre-void images, bilateral ureteral jets are noted with color Doppler interrogation. (Of note, ureteral jets may not be detectable in up to 25% of cases due to i nsufficient differences in specific gravity between ureteral and bladder urine). Miscellaneous: No free pelvic fluid. Doppler images of the renal vasculature demonstrates normal va scular waveforms and normal resistive indices. IMPRESSION: 1. Bilateral kidneys without acute sonographic abnormalities or obstructive uropathy. Minimal right r enal pelviectasis. 2. Bilateral renal cysts. Reviewed by: Shamar Rader MD on 07/31/2020 3:06 PM PDT Approved by: Shamar Rader MD on 07/31/2020 3:06 PM PDT Station ID: [id number]
== END 2020-07-30 14:43 | disposition home or self-care (01) ==
LOC: DI 14:42
PROVIDERS: ATTEND Internal Medicine Nephrology
DX: N17.9 Acute kidney failure, unspecified (principal); N28.1 Cyst of kidney, acquired

== ENCOUNTER 2020-08-07 15:47 | Outpatient (CLI) | payer OTHER ==
[2020-08-07 16:17] LABS: CALCIUM 9.9 mg/dL (8.5-10.3); CREATININE 1.2 mg/dL (0.4-1.0); POTASSIUM 3.9 mmol/L (3.5-5.0)
== END 2020-08-07 15:48 | disposition home or self-care (01) ==
LOC: LAB 15:47
PROVIDERS: ATTEND Internal Medicine Nephrology
DX: N05.9 Unspecified nephritic syndrome with unspecified morphologic changes (principal)
CPT/HCPCS: 36415; 80048